=== PATIENT | female | born 1990 | race Caucasian/White ===

== ENCOUNTER 2020-11-26 23:30 | Emergency (ER) | payer MEDICAID ==
[~2020-11-26] VITALS: Ht 162.6 cm; Wt 90.0 kg
[~2020-11-26 23:30] MED LIST: IBUP-2030 PO
[2020-11-27] MEDS ORDERED: ACETAMINOPHEN 325MG TABLET PO STA (00:12)
[2020-11-27 00:38] LABS: BASOPHILS % 1.1 % (0.0-2.0); EOSINOPHILS % 1.9 % (0.0-5.0); HEMATOCRIT. 36.3 % (36.0-48.0); HEMOGLOBIN. 12.3 g/dL (12.0-16.0); LYMPHOCYTES % 29.7 % (20.0-50.0); MEAN CORPUSCULAR HEMOGLOBIN 28.2 pg (28.0-32.0); MEAN CORPUSCULAR VOLUME 83.3 fL (81.0-99.0); MEAN PLATELET VOLUME 10.9 fl (7.4-10.4); MONOCYTES % 6.5 % (2.0-8.0); NEUTROPHILS % 60.8 % (40.0-76.0); PLATELET 236 x1000/uL (130-400); RED BLOOD CELL COUNT 4.35 mill/uL (4.2-5.4)
[2020-11-27 02:28] LABS: CLARITY URINE CLEAR (CLEAR); COLOR URINE YELLOW (YELLOW); KETONES URINE TRACE (NEGATIVE); LEUKOCYTE ESTERASE URINE TRACE (NEGATIVE); NITRITE URINE NEGATIVE (NEGATIVE); OCCULT BLOOD URINE 3+ (NEGATIVE); PH URINE 5.5 (4.5-8.0); PROTEIN URINE 1+ (NEGATIVE); UROBILINOGEN URINE 0.2 E.U./dL (0.2-1.0)
[2020-11-27] MEDS ORDERED: TOPUD MT (02:42)
[2020-11-27 03:20] VITALS: BP 132/79
== END 2020-11-27 03:23 | disposition home or self-care (01) ==
LOC: ER 23:30
DX: O20.0 Threatened abortion (principal); Z3A.11 11 weeks gestation of pregnancy
CPT/HCPCS: 36415; 76801; 81003; 84702; 85025; 86900; 99284

== ENCOUNTER 2020-11-28 10:12 | Emergency (ER) | payer MEDICAID ==
[~2020-11-28] VITALS: Ht 175.3 cm; Wt 90.0 kg
[~2020-11-28 10:12] MED LIST changes: +TOPUD MT
[2020-11-28] MEDS ORDERED: SODIUM CHLORIDE 0.9% 1,000 ML IV ONE (11:15)
[2020-11-28] MEDS ORDERED: DEXT 5%/LR + PITOCIN 20UNITS/L 1,000 ML IV ONE (11:15)
[2020-11-28 12:00] LABS: BASOPHILS % 0.2 % (0.0-2.0); EOSINOPHILS % 0.7 % (0.0-5.0); HEMATOCRIT. 32.5 % (36.0-48.0); HEMOGLOBIN. 10.8 g/dL (12.0-16.0); LYMPHOCYTES % 10.8 % (20.0-50.0); MEAN CORPUSCULAR VOLUME 84.4 fL (81.0-99.0); MEAN PLATELET VOLUME 11.7 fl (7.4-10.4); MONOCYTES % 4.2 % (2.0-8.0); NEUTROPHILS % 84.1 % (40.0-76.0); PLATELET 210 x1000/uL (130-400); RED BLOOD CELL COUNT 3.85 mill/uL (4.2-5.4); RED CELL DISTRIBUTION WIDTH 14.8 % (11.6-14.6)
[2020-11-28 12:04] LABS: CHLORIDE 108 mEq/L (98-107)
[2020-11-28 12:26] LABS: B-HCG QUANTITATIVE 20784 mIU/mL (<3)
[2020-11-28 16:35] VITALS: BP 105/70
== END 2020-11-28 17:00 | disposition home or self-care (01) ==
LOC: ER 10:33
DX: O46.91 Antepartum hemorrhage, unspecified, first trimester (principal); Z3A.11 11 weeks gestation of pregnancy
CPT/HCPCS: 36415; 76801; 76817; 80053; 84702; 85025; 86850; 86900; 86901; 93005; 96365; 99285; J2590; J7030; Z7610

== ENCOUNTER 2023-09-12 18:46 | Emergency (ER) | payer MEDICAID, OTHER ==
[~2023-09-12] VITALS: Ht 167.6 cm; Wt 91.0 kg
[2023-09-12 18:52] VITALS: BP 147/87; PULSE 103; RESP 18; TEMP 98.5; O2SAT 98
[2023-09-12] MEDS ORDERED: LIDOCAINE 5% PATCH TOP SCH (23:30)
[2023-09-12] MEDS ORDERED: IBUPROFEN 400MG TABLET PO ONE (23:30)
[2023-09-12] MEDS ORDERED: ACETAMINOPHEN 325MG TABLET PO ONE (23:30)
[2023-09-13] MEDS ORDERED: ACETAMINOPHEN 325MG TABLET PO NR (01:15)
[2023-09-13] MEDS ORDERED: IBUPROFEN 400MG TABLET PO NR (01:15)
== END 2023-09-13 05:44 | disposition left against medical advice (07) ==
LOC: ER 18:46
DX: S09.8XXA Other specified injuries of head, initial encounter (principal); R07.89 Other chest pain; Z98.890 Other specified postprocedural states; Z90.49 Acquired absence of other specified parts of digestive tract; V49.49XA Driver injured in collision with other motor vehicles in traffic accident, initial encounter; Y93.89 Activity, other specified; Y92.89 Other specified places as the place of occurrence of the external cause; Y99.8 Other external cause status
CPT/HCPCS: 71101; 73030; 99284